=== PATIENT | male | born 1960 | race Two or more races ===

== ENCOUNTER → 2025-01-13 | Outpatient (CLI) | payer OTHER, SELFPAY ==
--- NOTE | 2025-01-13 12:40 | XR_ITS ---
Examination: PA lateral chest 2 views TECHNIQUE: Upright PA lateral chest 2 views Date and time: January 13, 2025 1245 hours INDICATIONS: Coughing beginning 2 weeks ago. FINDINGS: Early pneumonia of both bases Normal heart size Moderate osteopenia IMPRESSION: Early pneumonia both bases
== END | disposition home or self-care (01) ==
PROVIDERS: PCP Nurse Practitioner Primary Care; Referring Provider Nurse Practitioner Primary Care; Visit Provider Nurse Practitioner Primary Care
DX: J18.9 Pneumonia, unspecified organism (principal)
CPT/HCPCS: 71046